=== PATIENT | female | born 1990 | race Caucasian/White ===

== ENCOUNTER → 2017-11-17 | Day surgery (SDC) | payer BC, OTHER ==
[~2017-11-17] VITALS: Ht 157.5 cm; Wt 71.3 kg
[~2017-11-17] MED LIST: ACETAMINOPHEN 1000 MG/100 ML 100 ML IV ONE; ACYC400T PO; BUPIVACAINE/EPINEPHRINE 0.25% 50 ML VIAL ONE; CHLORHEXIDINE GLUCONATE 2 % 1 PACK (2 CLOTHS) TOPICAL PRN; DEXAMETHASONE SOD PHOS 4 MG/ML VIAL IV ONE; DO NOT ADM ANY ANTICOAGULANT DRUGS PRN; GLYCOPYRROLATE 1 MG/5 ML SYRINGE IV PUSH ONE; KETOROLAC TROMETHAMINE 30 MG/ML (IVP) VIAL IV PUSH ONE; LACTATED RINGER'S 1000 ML INJ 1,000 ML IV ONE; LACTATED RINGER'S 1000 ML IV PRN; LIDOCAINE HCL 1% PF 5 ML SYRINGE OTHER ONE; METOPROLOL TARTRATE 25 MG TAB PO PRN; MIDAZOLAM HCL 2 MG/2 ML VIAL ONE; MORPHINE SULFATE 2 MG/ML SYRINGE ONE; NEOSTIGMINE 5 MG/5 ML SYRINGE IV PUSH ONE; ONDANSETRON HCL 4 MG/2 ML VIAL IV ONE; PERC5TAB12 PO; POVIDONE IODINE 5% (ANTISEPSIS KIT) 4 APPLICATIONS EACH NARE PRN; PROPOFOL 200 MG/20 ML AMP IV ONE; ROCURONIUM INJ 50 MG/5 ML SYRINGE IV PUSH ONE; SODIUM CHLORID 0.9% 500 ML IV PRN; fentaNYL CITRATE 250 MCG/5 ML AMP ONE
[2017-11-17 09:19] LABS: AUTOMATED NEUTROPHIL # 3.3 TH/MM3 (1.8-7.7); BASOPHIL % 0.8 % (0.0-2.0); EOSINOPHIL # 0.1 TH/MM3 (0-0.4); EOSINOPHIL % 1.6 % (0.0-4.0); HEMATOCRIT 40.8 % (35.0-46.0); HEMOGLOBIN 13.9 GM/DL (11.6-15.3); LYMPH % 31.6 % (9.0-44.0); LYMPHOCYTE # 1.8 TH/MM3 (1.0-4.8); MEAN CELL VOLUME 87.1 FL (80.0-100.0); MEAN CORPUSCULAR HEMOGLOBIN 29.7 PG (27.0-34.0); MEAN PLATELET VOLUME 8.4 FL (7.0-11.0); MONO % 7.9 % (0.0-8.0); MONOCYTE # 0.5 TH/MM3 (0-0.9); NEUT % 58.1 % (16.0-70.0); PLATELET COUNT 233 TH/MM3 (150-450); RED BLOOD COUNT 4.69 MIL/MM3 (4.00-5.30); RED CELL DISTRIBUTION WIDTH 12.9 % (11.6-17.2); WHITE BLOOD COUNT 5.8 TH/MM3 (4.0-11.0)
--- NOTE | 2017-11-17 12:35 | PD.OP ---
Operative Report Date of Surgery: Nov 17, 2017 Preoperative Diagnosis: (1) Right ovarian cyst Postoperative Diagnosis: (1) Left ovarian cyst Procedure: operative laparoscopy with left salpingoophorectomy drain right ovarian cyst Anesthesia: general Surgeon: Sj Byrne Color Sprayer(s): Sj Gotti MD Nov 17, 2017 12:35
--- NOTE | 2017-11-17 12:37 | HHI.DCPOC ---
Discharge Care Plan Diagnosis: (1) Left ovarian cyst Report Symptoms to Your Doctor -Temperature above 100.5 degrees -Redness, of incision or excessive or foul smelling drainage -Unusual pain or calf pain -Increased vaginal bleeding -Painful or difficulty urinating -Feelings of extreme sadness or anxiety after 2 weeks Goals to Promote Your Health * To prevent worsening of your condition and complications * To maintain your health at the optimal level Directions to Meet Your Goals Take your medications as prescribed Follow your dietary instruction Follow activity as directed Ensure plenty of rest for recovery Drink fluids for hydration Keep your appointments as scheduled Take your immunizations and boosters as scheduled If your symptoms worsen call your PCP, if no PCP go to Urgent Care Center or Emergency Room Smoking is Dangerous to Your Health. Avoid second hand smoke Call the 24-hour crisis hotline for domestic abuse at Sj Byrne MD Nov 17, 2017 12:37
--- NOTE | 2017-11-17 12:56 | MP ---
cc: Sj Byrne MD DATE OF OPERATION: 11/17/2017 DATE OF PROCEDURE: 11/17/2017 PROCEDURE PERFORMED: Operative laparoscopy with left salpingo-oophorectomy and drainage of right ovarian cyst. PREOPERATIVE DIAGNOSIS: A 10 cm right ovary. POSTOPERATIVE DIAGNOSIS: Left ovary was 10 cm with a 1 cm cyst on the right ovary. SURGEON: Sj Monet MD ELECTROMATIC TYPIST: JEANIE Jackson ESTIMATED BLOOD LOSS: 30 mL. ANESTHESIA: General. 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 PROCEDURE IN DETAIL: After informed consent, the patient was taken to the operating room where she was placed under general anesthesia. She was placed in the supine position with legs in the Yellofin stirrups, had her perineum and vagina were prepped and draped in normal sterile fashion. After adequate anesthesia was assured and a timeout was taken, a speculum was placed into the vagina. The cervix was grasped with a single-tooth tenaculum. A uterine manipulator was placed in place and a Hernandez catheter was placed to gravity. Gloves were changed and a 5 mm infraumbilical incision was made after injecting with 0.25% Marcaine with epinephrine and we entered the abdomen under direct visualization. Survey of the upper abdomen with normal liver, normal appendix. Pelvis was normal. Right ovary and fallopian tube with a normal uterus. Anterior and posterior cul-de-sac were normal but the left ovarian cyst was severely abnormal. A 5 mm trocar was placed in from the right lower quadrant and placed directly into the cyst and this fluid was sucked directly out of that cyst through the trocar site. This was a mucinous cyst adenoma with mucin which was very clear. Once the cyst was completely drained and irrigated twice, the survey of the pelvis revealed a fallopian tube, which was densely adherent and stretched across a very enlarged ovary. The ovary was deflated at this point, so the cyst wall was attempted to be dissected, but there was no cyst wall that could be dissected away from this very enlarged ovary. A portion of normal ovary was suspected near the infundibulopelvic ligament. We then placed the Harmonic scalpel and started to dissect that area but the cyst wall went all the way to the vessel and there was no normal ovary at all. When there was no normal ovary diagnosed, a decision was made for oophorectomy. The fallopian tube was dissected off the ovary with Harmonic scalpel. At the end of the procedure, we had some bleeding at the infundibulopelvic ligament where the vessel was right against the pelvic sidewall, the ureter was well below that area and free, but a decision was made to visualize the vessel. Using Harmonic scalpel, we could not get the bleeding to stop. There was a slow ooze coming from the venous system, so a bipolar cautery was used until hemostasis was achieved. The ureter was free of this area. The vein became very engorged in that area. The vessel turned dusky purple. Blood supply had been compromised. The vein was no longer seen to be outflowing and a decision was made to take the fallopian tube because of the loss of vascular viability. We took the fallopian tube on the left side in that she had a normal fallopian tube and ovary on the right, so the ultimate procedure was left salpingo-oophorectomy. There was a cyst on the right side, which was about 1-1.5 cm. A decision was made to drain that cyst. It seemed to be a very simple cyst, but wanted to make sure there was no mucin in it and there was no mucin seen. At this point, once we visualized that there was no mucin seen, a decision was made that it was just serous cyst, probably ovulatory and physiologic. This ovary with good hemostasis had been achieved, Fallopian tube was normal. The ovary was normal. Procedure was ended, after the pelvis was irrigated well. We visualized all vessels on the left hand side. They were all hemostatic. The procedure was ended. All instruments were removed. The umbilical trocar had been placed under direct visualization and the left lower quadrant, suprapubic and right were also placed. The specimen was removed with an EndoCatch through the suprapubic 12 mm incision. The patient had all 4 trocars sites closed with a simple stitch at the skin, but the fascia was closed suprapubically at the 12 mm port. At the end of the procedure, the patient was awakened and taken to the recovery room in stable condition. Lap and instrument counts were reported as correct. MD YOMAIRA Ward/KD , 12:23 PM , 12:55 PM
[2017-11-17 14:16] VITALS: BP 101/75; PULSE 72; RESP 18; TEMP 97.8; O2SAT 100
== END | disposition home or self-care (01) ==
LOC: HSDC 08:23
PROVIDERS: ATTEND Obstetrics & Gynecology
DX: N83.201 Unspecified ovarian cyst, right side (principal); D27.1 Benign neoplasm of left ovary; Z01.818 Encounter for other preprocedural examination
CPT/HCPCS: 00840; 49322; 58661; 84703; 85025; 88307; J0131; J1100; J1885; J2250; J2270; J2405; J2710; J3010; J7120; 88305